=== PATIENT | female | born 1970 ===

== ENCOUNTER 2023-05-19 06:56 | Day surgery (SDC) | payer MEDICAID ==
[~2023-05-19 06:56] MED LIST: Dextrose 5%-0.45% NaCl 1,000 ML IV SCH
[2023-05-19] MEDS ORDERED: Midazolam 1 MG/ML 2 ML SDV IV ONE ×7 (06:57→08:01)
[2023-05-19] MEDS ORDERED: fentaNYL 100 MCG/2 ML SDV IV ONE ×3 (06:57→07:53)
[2023-05-19] MEDS ORDERED: Midazolam 1 MG/ML 2 ML SDV ONE (07:42)
[2023-05-19] MEDS ORDERED: fentaNYL 100 MCG/2 ML SDV ONE (07:42)
== END 2023-05-19 09:40 | disposition home or self-care (01) ==
LOC: DL.ENDO 06:56
PROVIDERS: ATTEND Internal Medicine Gastroenterology
DX: Z12.11 Encounter for screening for malignant neoplasm of colon (principal); K64.8 Other hemorrhoids; E66.09 Other obesity due to excess calories; I10 Essential (primary) hypertension; Z90.49 Acquired absence of other specified parts of digestive tract; Z20.822 Contact with and (suspected) exposure to COVID-19; Z68.30 Body mass index [BMI] 30.0-30.9, adult; Z90.89 Acquired absence of other organs; Z79.82 Long term (current) use of aspirin; Z79.899 Other long term (current) drug therapy
CPT/HCPCS: J2250; J3010; J7042